=== PATIENT | male | born 1995 | race Caucasian/White ===

== ENCOUNTER 2021-10-24 21:59 | Inpatient (IN) | payer OTHER ==
[~2021-10-24] VITALS: Ht 182.9 cm; Wt 64.0 kg
[2021-10-24 22:42] LABS: EOSINOPHIL 0.1 % (0-5); HCT 54.5 % (42.0-52.0); HGB 19.1 g/dl (13.2-18.0); MCH 31.7 pg (25.0-31.0); MCV 90.5 fL (78.0-100.0); MONOCYTE 3.7 % (0-12); MPV 9.5 fL (6.0-9.5); NRBC 0; PLT 371 K/uL (150-400); RBC 6.02 M/uL (4.70-6.00); RDW 11.9 % (11.5-14.0); WBC 15.5 K/uL (4.0-10.5)
[2021-10-24 23:05] LABS: ALBUMIN 4.9 g/dL (3.4-5.0); BILIRUBIN - TOTAL 0.7 mg/dL (0.2-1.0); CREATININE 0.96 mg/dL (0.67-1.17); GLOBULIN (CALCULATION) 3.9 g/dL; PHOSPHORUS 6.1 mg/dL (2.6-4.7); POTASSIUM 4.7 mmol/L (3.5-5.1); TOTAL PROTEIN 8.8 g/dL (6.4-8.2)
[2021-10-24 23:07] LABS: LACTIC ACID 2.7 mmol/L (0.4-1.9)
[2021-10-24 23:49] LABS: BILIRUBIN NEGATIVE (NEGATIVE); BLOOD TRACE-INTACT Ery/uL (NEGATIVE); CLARITY CLEAR (CLEAR); COLOR YELLOW (YELLOW); GLUCOSE (U) 3+ mg/dL (NORMAL); LEUKOCYTES NEGATIVE Leu/uL (NEGATIVE); NITRITE NEGATIVE (NEGATIVE); PROTEIN 2+ mg/dL (NEGATIVE); SPECIFIC GRAVITY >=1.030 (1.001-1.030); UROBILINOGEN 0.2 mg/dL (0.2-1.0)
[2021-10-25 00:11] LABS: BACTERIA TRACE; SQUAMOUS EPITHELIAL CELLS RARE
[2021-10-25 02:11] LABS: BUN/CREAT RATIO (CALC) 22.7 RATIO; CREATININE 0.75 mg/dL (0.67-1.17); POTASSIUM 4.8 mmol/L (3.5-5.1)
[2021-10-25 06:54] LABS: BASOPHIL 0.4 % (0-2); EOSINOPHIL 0.1 % (0-5); HCT 44.9 % (42.0-52.0); HGB 15.9 g/dl (13.2-18.0); LYMPHOCYTE 19.7 % (15-48); MCH 31.3 pg (25.0-31.0); MCHC 35.4 g/dL (32.0-36.0); MCV 88.4 fL (78.0-100.0); MONOCYTE 5.8 % (0-12); MPV 9.4 fL (6.0-9.5); NEUTROPHIL 72.7 % (41-80); NRBC 0; PLT 273 K/uL (150-400); RBC 5.08 M/uL (4.70-6.00); RDW 11.7 % (11.5-14.0); WBC 17.8 K/uL (4.0-10.5)
[2021-10-25 07:23] LABS: BUN/CREAT RATIO (CALC) 21.7 RATIO; CREATININE 0.69 mg/dL (0.67-1.17); POTASSIUM 4.4 mmol/L (3.5-5.1)
--- NOTE | 2021-10-25 11:25 | NUR ---
1045 NOTIFIED MD TORRES THAT PT BLOOD SUGAR IS 325 AND ON COLUMN 2 INSULIN GTT PROTOCOL AND D5 1/2 NS 20K AT 250ML/HR, IV FLUIDS. ORDERS GIVEN TO DECREASE THE IV FLUIDS RATE DOWN TO 150ML/HR. WILL CONTINUE Q1HR FINGER STICKS PER PROTOCOL
[2021-10-25 11:29] LABS: BUN/CREAT RATIO (CALC) 20.9 RATIO; CREATININE 0.67 mg/dL (0.67-1.17); MAGNESIUM 1.8 mg/dL (1.8-2.4); PHOSPHORUS 2.4 mg/dL (2.6-4.7); POTASSIUM 4.2 mmol/L (3.5-5.1)
[2021-10-25] MEDS ORDERED: TOUJEO MAX300 UNIT/1 SC (15:07)
[2021-10-25] MEDS ORDERED: INSULIN AS100 UNIT/3 SC (15:11)
[2021-10-26 06:03] LABS: BASOPHIL 0.3 % (0-2); EOSINOPHIL 1.6 % (0-5); HCT 35.3 % (42.0-52.0); HGB 12.8 g/dl (13.2-18.0); LYMPHOCYTE 48.2 % (15-48); MCH 32.4 pg (25.0-31.0); MCHC 36.3 g/dL (32.0-36.0); MCV 89.4 fL (78.0-100.0); MONOCYTE 7.3 % (0-12); MPV 9.5 fL (6.0-9.5); NEUTROPHIL 42.2 % (41-80); NRBC 0; PLT 192 K/uL (150-400); RBC 3.95 M/uL (4.70-6.00); RDW 11.9 % (11.5-14.0); WBC 7.5 K/uL (4.0-10.5)
[2021-10-26 06:52] LABS: BUN/CREAT RATIO (CALC) 23.2 RATIO; CREATININE 0.69 mg/dL (0.67-1.17); POTASSIUM 3.2 mmol/L (3.5-5.1)
== END 2021-10-26 10:00 | disposition home or self-care (01) | DRG 638 ==
LOC: FER 21:59 → FICU 10-25 01:20
PROVIDERS: Emergency Medicine; Nurse Practitioner Acute Care; ADMIT Internal Medicine
DX: E10.10 Type 1 diabetes mellitus with ketoacidosis without coma (principal); R65.10 Systemic inflammatory response syndrome (SIRS) of non-infectious origin without acute organ dysfunction; Z20.822 Contact with and (suspected) exposure to COVID-19; E86.0 Dehydration; I10 Essential (primary) hypertension; Z28.310 Unvaccinated for COVID-19; Z82.49 Family history of ischemic heart disease and other diseases of the circulatory system; Z83.3 Family history of diabetes mellitus
CPT/HCPCS: 36415; 36600; 71045; 80048; 80053; 81001; 82009; 82803; 82962; 83036; 83605; 83735; 84100; 84484; 85025; 93005; 94010; J1650; J1815; J2405; J2550; J3480; J7030; J7050; J7120; U0002